=== PATIENT | female | born 1940 | race Caucasian/White ===

== ENCOUNTER → 2016-08-25 | Outpatient (CLI) | payer MEDICARE, OTHER ==
[~2016-08-25] MED LIST: BYSTOLIC10 MG PO; CLARITIN10 MG PO; LEXAPRO10 MG PO; NORCO 5-325 TA1 EACH PO; OXYGEN M-15 INH; TYLENOL EXTRA500 MG PO; VYTORIN 10-401 EACH PO
== END | disposition disaster alternative care site (69) ==
LOC: LHSC 16:19
DX: Z12.11 Encounter for screening for malignant neoplasm of colon (principal); K63.5 Polyp of colon

== ENCOUNTER 2016-08-26 06:00 | Day surgery (SDC) | payer MEDICARE, OTHER ==
[~2016-08-26] VITALS: Ht 157.5 cm; Wt 74.5 kg
--- NOTE | ~2016-08-26 | OR ---
PATIENT'S NAME: CARL DIAS [facility] AGE: 76 Y [address] ROOM: [address] [address] LOCATION: [facility] ADMIT DATE: 08/26/2016 OR/Procedure Report DISCHARGE DATE: 08/26/2016 FAMILY PHYSICIAN: Isabel Fitzpatrick MD ATTENDING PHYSICIAN: Shan Neil SURGEON: Shan Neil MD RIBBON LAPPER TENDER: Tatianna Johnston PA-C. DATE OF PROCEDURE: 08/26/2016 PREOPERATIVE DIAGNOSES: 1. Biliary colic. 2. Chronic cholecystitis, cholelithiasis. POSTOPERATIVE DIAGNOSES: 1. Biliary colic. 2. Chronic cholecystitis, cholelithiasis. PROCEDURE PERFORMED: Laparoscopic cholecystectomy. ANESTHESIA: General with 30 mL of 0.5% Marcaine local. SPECIMENS: Gallbladder with multiple stones. INDICATION: The patient is a 76-year-old young lady referred by Dr. Isabel Fitzpatrick for evaluation of chronic epigastric abdominal pain, sometimes into her back. Ultrasound revealed cholelithiasis. Liver function tests were normal. The patient also underwent a screening colonoscopy yesterday per Dr. Dooley. Polyps were removed. She wishes to proceed with elective gallbladder removal. DESCRIPTION OF PROCEDURE: After informed consent, the patient was taken to the operating room. After general endotracheal anesthesia, the patient's abdomen was prepped and draped into a sterile field. A time-out was performed. We confirmed the patient, planned operation, and preop administration of IV antibiotics. We began by injecting local anesthetic prior to each incision, the first one made below the umbilicus and carried down to identify the anterior fascia through which a Veress needle was inserted. Pneumoperitoneum was created. An 11 mm trocar and 10 mm camera were inserted. Safe entry was noted. Some adhesions of omentum to the lower abdominal wall. Under direct vision, the remaining trocars were placed. The gallbladder was floppy and pale. It was retracted cephalad, and there were a lot of adhesions of omentum to the liver which were taken down as well as from the infundibulum. The stomach had to be retracted down, and then we opened up the triangle. There was a lot of chronic inflammatory tissue. We stripped it down carefully. We isolated out the cystic duct and cystic artery. Entering the gallbladder under direct vision, we clipped each one x4 and divided. The PATIENT'S NAME: CARL DIAS [facility] AGE: 76 Y [address] ROOM: [address] [address] LOCATION: [facility] ADMIT DATE: 08/26/2016 OR/Procedure Report DISCHARGE DATE: 08/26/2016 FAMILY PHYSICIAN: Isabel Fitzpatrick MD ATTENDING PHYSICIAN: Shan Neil gallbladder was removed from the liver bed with electrocautery and placed into an EndoCatch bag. We then irrigated the right upper quadrant until clear. Irrigated the abdominal cavity until clear. The trocars were removed. The pneumoperitoneum was released. Midline fascia defect closed with 0 Vicryl, skin closed with subcuticular 4-0 Vicryl. Steri-Strips and sterile dressings applied. The patient tolerated the procedure well, transferred to the recovery room in stable condition. SHAN NEIL MD WTS/modl /[id number] d: 08/26/16 1647 t: 08/27/16 0945, OPERATIVE SUMMARY
[~2016-08-26 06:00] MED LIST changes: -NORCO 5-325 TA1 EACH PO; -TYLENOL EXTRA500 MG PO
[2016-08-26 08:34] LABS: PCO2 42 mmHg (35-45); PO2 43 mmHg (80-90)
[2016-08-26 08:35] LABS: BICARBONATE 24.3 mmol/L (18.0-23.0); POTASSIUM 3.9 mEq/L (3.7-5.1); SODIUM 140 mEq/L (135-145)
--- NOTE | 2016-08-26 09:02 | NUR ---
0900 NORCO 2 TABS OF 5/325 MG GIVEN WITH BITES OF CRACKER AND FENTANYL 25 MCG GIVEN IVP FOR C/O DISCOMFORT. PT DROWSY, HOLDS ABDOMEN AND GRIMACES
--- NOTE | 2016-08-26 09:11 | NUR ---
0910 REPORT GIVEN TO KRISTIE LUX RN. TO ROOM 1039 PER CART
[2016-08-26] MEDS ORDERED: NORCO 5-325 TA1 EACH PO (09:26)
[2017-02-26] MEDS ORDERED: TYLENOL EXTRA500 MG PO (09:40)
== END 2016-08-26 13:35 | disposition disaster alternative care site (69) ==
LOC: GPOC 06:00 → G3N 06:00 → GPOC 07:00
PROVIDERS: Anesthesiology
PROC: 0FT44ZZ Resection of Gallbladder, Percutaneous Endoscopic Approach (ICD-10-PCS; principal; 2016-08-26)
DX: K80.10 Calculus of gallbladder with chronic cholecystitis without obstruction (principal); I11.0 Hypertensive heart disease with heart failure; I50.9 Heart failure, unspecified; E78.5 Hyperlipidemia, unspecified; F32.9 Major depressive disorder, single episode, unspecified; M79.662 Pain in left lower leg; M79.661 Pain in right lower leg; Z87.891 Personal history of nicotine dependence; Z79.899 Other long term (current) drug therapy; Z99.81 Dependence on supplemental oxygen
CPT/HCPCS: J0694; J1100; J2001; J2250; J2405; J2550; J3010; J7120

== ENCOUNTER → 2017-02-23 | Outpatient (CLI) | payer MEDICARE ==
[~2017-02-23] MED LIST changes: +NORCO 5-325 TA1 EACH PO; +TYLENOL EXTRA500 MG PO
--- NOTE | ~2017-02-23 | ESTC ---
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 Risks, complications and alternative treatments were reviewed. Written consent was obtained. Medications Reviewed with Patient prior to Procedure. Procedure Procedure Type: Nuclear Stress Test:Pharmacological, Lexiscan, Cardiolite Stress Test Procedure Start time: 02/23/2017 09:37 Indications: Shortness of breath and Chest pain. Risk Factors The patient risk factors include:treated hypercholesterolemia, treated hypertension and dyslipidemia. Conclusions Summary Cardiolite SPECT images demonstrate inducible reversible defect involving the anteroseptum and apical septum. No evidence of inducible reversible defect. TID is at upper limits of normal at 1.10 Gated images demonstrate overall preserved left ventricular systolic function. LVEF is 73% Stress Protocols Resting ECG baseline EKG shows normal sinus rhythm Pre-stress physical exam: Normal heart and lung exam Predicted HR: 144 bpm ECG Findings Normal sinus without ST-T wave changes Symptoms Shortness of breath Imaging Results Applied corrections - Motion correction applied High risk findings Summed scores - Summed stress score: 21 - Summed rest score: 22 - Summed difference score: -1 Stress ejection Ejection fraction:73 % EDV :108 ml ESV :29 ml Stroke volume :79 ml LV mass :124 gr Imaging Protocols Rest Stress Isotope:Tc99m Sestamibi IV Isotope: Tc99m Sestamibi IV Isotope dose:12 mCi Isotope dose:36.4 mCi Date:02/23/2017 08:01 Date:02/23/2017 09:50 Technique: SPECT Technique: Gated Supine SPECT Supine Scan Time:45-60 minutes post injection Procedure Medications - Regadenoson (Lexiscan) 0.4 mg IV over 10-15 sec. I.V. 0.4 mg. Medications administered per verbal order and read back to physician prior to administration. Medical History Admission Data Admission date: 02/23/2017 Admission Time: 07:45 Hospital Status: Outpatient. Signatures dtt: Cory Pang (cardio) dtd: 02/23/17 0937 Physician Self Edit
== END ==
LOC: GRAD 07:45
DX: R07.89 Other chest pain (principal); R06.02 Shortness of breath
CPT/HCPCS: A9500; J2785

== ENCOUNTER → 2017-02-25 | Outpatient (CLI) | payer MEDICARE ==
[2017-02-25 10:46] LABS: BASOPHIL # 0.1 K/uL (0.0-0.2); BASOPHIL % 1.2 %; EOSINOPHIL # 0.6 K/uL (0.0-0.5); EOSINOPHIL % 6.2 %; HEMOGLOBIN 14.2 g/dL (10.0-15.0); IMMATURE GRANULOCYTE % 0.1 %; LYMPHOCYTE # 2.7 K/uL (0.8-4.0); LYMPHOCYTE % 30.6 %; MCH 34.8 pg (27.0-34.0); MCHC 33.8 gm/dL (32.0-36.5); MCV 102.9 fl (83.0-98.0); MONOCYTE # 0.8 K/uL (0.0-1.0); MONOCYTE % 9.3 %; MPV 9.7 fl (9.4-12.4); NEUTROPHIL # (ANC) 4.6 K/uL (1.8-7.8); NEUTROPHIL % 52.6 %; NRBC % 0 /100WBC (0-0.00); PLATELET COUNT 301 K/uL (150-450); RBC 4.08 M/uL (3.50-5.50); RDW-CV 12.5 % (11.9-14.6); WBC 8.8 K/uL (4.0-11.0)
[2017-02-25 10:56] LABS: ALBUMIN 3.4 gm/dL (3.5-5.0); ANION GAP 12.4 (10.0-19.0); CREATININE 0.6 mg/dL (0.5-1.1); PHOSPHORUS 3.8 mg/dL (2.5-4.9); POTASSIUM 4.4 mMol/L (3.7-5.1)
== END ==
LOC: LCNC 10:41
PROVIDERS: Internal Medicine Interventional Cardiology
DX: I10 Essential (primary) hypertension (principal)